=== PATIENT | female | born 1980 | race Caucasian/White ===

== ENCOUNTER 2022-02-05 09:30 | Outpatient (CLI) | payer OTHER | END 2022-02-05 09:38 | disposition home or self-care (01) | LOC: RAD 09:30 | DX: S52.202D Unspecified fracture of shaft of left ulna, subsequent encounter for closed fracture with routine healing (principal); S32.001A Stable burst fracture of unspecified lumbar vertebra, initial encounter for closed fracture ==

== ENCOUNTER 2022-04-03 13:08 | Outpatient (CLI) | payer OTHER | END 2022-04-03 13:17 | disposition home or self-care (01) | LOC: RAD 13:08 | DX: S62.002A Unspecified fracture of navicular [scaphoid] bone of left wrist, initial encounter for closed fracture (principal); S52.502A Unspecified fracture of the lower end of left radius, initial encounter for closed fracture ==

== ENCOUNTER 2024-05-23 15:22 | Outpatient (CLI) | payer OTHER | END 2024-05-23 15:31 | disposition home or self-care (01) | LOC: RAD 15:22 | DX: S52.322A Displaced transverse fracture of shaft of left radius, initial encounter for closed fracture (principal) ==

== ENCOUNTER 2024-08-23 15:03 | Outpatient (CLI) | payer OTHER | END 2024-08-23 15:13 | disposition home or self-care (01) | LOC: RAD 15:03 | DX: S52.302A Unspecified fracture of shaft of left radius, initial encounter for closed fracture (principal); X58.XXXA Exposure to other specified factors, initial encounter; Y93.9 Activity, unspecified; Y92.9 Unspecified place or not applicable; Y99.9 Unspecified external cause status ==

== ENCOUNTER 2025-06-06 15:17 | Outpatient (CLI) | payer OTHER | END 2025-06-06 15:25 | disposition home or self-care (01) | LOC: SONOGRAMA 15:17 | DX: S86.811A Strain of other muscle(s) and tendon(s) at lower leg level, right leg, initial encounter (principal) ==